=== PATIENT | male | born 1990 | race Caucasian/White ===

== ENCOUNTER 2017-04-02 07:44 | Emergency (ER) | payer MEDICAID | END 2017-04-02 08:17 | disposition home or self-care (01) | LOC: D.ER 07:44 | DX: K02.9 Dental caries, unspecified (principal); K08.89 Other specified disorders of teeth and supporting structures; F17.200 Nicotine dependence, unspecified, uncomplicated ==

== ENCOUNTER 2017-04-02 20:35 | Emergency (ER) | payer MEDICAID | END 2017-04-02 21:43 | disposition home or self-care (01) | LOC: D.ER 20:35 | DX: K08.89 Other specified disorders of teeth and supporting structures (principal) ==

== ENCOUNTER 2017-07-28 16:26 | Emergency (ER) | payer MEDICAID | END 2017-07-28 17:39 | disposition home or self-care (01) | LOC: D.ER 16:26 | DX: J02.9 Acute pharyngitis, unspecified (principal); J06.9 Acute upper respiratory infection, unspecified; F17.200 Nicotine dependence, unspecified, uncomplicated ==

== ENCOUNTER 2017-11-06 19:11 | Emergency (ER) | payer MEDICAID ==
[~2017-11-06] VITALS: Ht 177.8 cm; Wt 77.3 kg
[2017-11-06 19:37] VITALS: Ht 177.8 cm; Wt 77.3 kg
[2017-11-06] MEDS ORDERED: TORADOL10 MG PO (22:11)
[2017-11-06] MEDS ORDERED: KEFLEX500 MG PO (22:11)
[2017-11-06 22:42] VITALS: BP 147/87
== END 2017-11-06 22:42 | disposition home or self-care (01) ==
LOC: D.ER 19:11
DX: T63.461A Toxic effect of venom of wasps, accidental (unintentional), initial encounter (principal); Y92.89 Other specified places as the place of occurrence of the external cause; L08.9 Local infection of the skin and subcutaneous tissue, unspecified; F17.200 Nicotine dependence, unspecified, uncomplicated

== ENCOUNTER 2019-04-12 13:27 | Emergency (ER) | payer OTHER ==
[~2019-04-12] VITALS: Ht 177.8 cm; Wt 81.8 kg
[~2019-04-12 13:27] MED LIST: KEFLEX500 MG PO; TORADOL10 MG PO
[2019-04-12 13:37] VITALS: Ht 177.8 cm; Wt 81.8 kg
[2019-04-12 14:32] LABS: APPEARANCE CLEAR (CLEAR); COLOR YELLOW (YELLOW); SPECIFIC GRAVITY 1.025 (1.005-1.020)
[2019-04-12 14:33] LABS: BACTERIA FEW /hpf (NEGATIVE); BILIRUBIN NEGATIVE (NEGATIVE); EPITHELIAL CELLS 0-5 /hpf (0-5); GLUCOSE NEGATIVE (NEGATIVE); KETONE NEGATIVE (NEGATIVE); NITRITE NEGATIVE (NEGATIVE); PROTEIN 1+ mg/dL (NEGATIVE); RED CELLS - URINE 0-5 /hpf (0-5); UROBILINOGEN NORMAL (NORMAL); WHITE CELLS - URINE NSEEN /hpf (NEGATIVE)
[2019-04-12 15:09] LABS: BASOPHILS 0.6 % (0-2); EOSINOPHILS 1.8 % (0-7); HEMATOCRIT 44.5 % (42.0-54.0); HEMOGLOBIN 15.7 g/dL (13.5-17.5); IMMATURE GRANULOCYTES 0.3 % (0-5); LYMPHOCYTES 30.3 % (15-50); MCH 31.7 pg (26.0-34.0); MCHC 35.3 g/dL (31.0-37.0); MCV 89.7 fL (80.0-100.0); MEAN PLATELET VOLUME 10.4 fL (7.4-10.4); RBC 4.96 10x6/uL (4.20-6.10); RDW 13.7 % (11.5-14.5); WBC 7.7 10x3/uL (4.8-10.8)
[2019-04-12 15:15] LABS: PLATELET COUNT 306 10x3/uL (130-400)
[2019-04-12 15:31] LABS: CALC OSMOLALITY 278 mosm/kg (275-300); CARBON DIOXIDE 29.9 mmol/L (21.0-32.0); CHLORIDE - SERUM 104 mmol/L (98-107); CREATININE - SERUM 0.7 mg/dL (0.6-1.3); GLUCOSE 85 mg/dL (74-106); POTASSIUM - SERUM 5.2 mmol/L (3.5-5.1); SODIUM 140 mmol/L (136-145); UREA NITROGEN 14 mg/dL (7-18); eGFR NON AFRICAN AMERICAN > 90 mL/min (90-120)
[2019-04-12 15:38] LABS: ALKALINE PHOSPHATASE 110 U/L (46-116); ALT (SGPT) 82 U/L (10-68); BILIRUBIN - TOTAL 0.54 mg/dL (0.2-1.3); PROTEIN - SERUM 7.9 g/dL (6.4-8.2)
[2019-04-12] MEDS ORDERED: IBUPROFEN800 MG PO (15:39)
[2019-04-12] MEDS ORDERED: HYDROCODON-ACE1 EAC2 PO (15:39)
[2019-04-12 17:31] VITALS: BP 152/93
== END 2019-04-12 17:32 | disposition home or self-care (01) ==
LOC: D.ER 13:27
PROVIDERS: Emergency Medicine
DX: S32.009A Unspecified fracture of unspecified lumbar vertebra, initial encounter for closed fracture (principal); W13.2XXA Fall from, out of or through roof, initial encounter; Y93.9 Activity, unspecified; Y92.9 Unspecified place or not applicable; S16.1XXA Strain of muscle, fascia and tendon at neck level, initial encounter; R31.9 Hematuria, unspecified; K66.1 Hemoperitoneum; J45.909 Unspecified asthma, uncomplicated; Z72.0 Tobacco use

== ENCOUNTER 2019-04-23 20:41 | Emergency (ER) | payer OTHER ==
[~2019-04-23] VITALS: Ht 177.8 cm; Wt 77.3 kg
[~2019-04-23 20:41] MED LIST changes: +HYDROCODON-ACE1 EAC2 PO; +IBUPROFEN800 MG PO
[2019-04-23 20:50] VITALS: Ht 177.8 cm; Wt 77.3 kg
[2019-04-23] MEDS ORDERED: MUCINEX DM ER1 EAC1 PO (21:14)
[2019-04-23] MEDS ORDERED: MEDROL DOSE PACK4 MG PO (21:14)
[2019-04-23] MEDS ORDERED: VOLTAREN75 MG PO (21:14)
[2019-04-23] MEDS ORDERED: CYCLOBENZAPRINE10 MG PO (21:14)
[2019-04-23 22:44] VITALS: BP 133/76
== END 2019-04-23 22:23 | disposition home or self-care (01) ==
LOC: D.ER 20:41
DX: M54.5 Low back pain (principal); J40 Bronchitis, not specified as acute or chronic; J45.909 Unspecified asthma, uncomplicated; Z72.0 Tobacco use

== ENCOUNTER 2019-06-12 09:36 | Emergency (ER) | payer OTHER ==
[~2019-06-12] VITALS: Ht 177.8 cm; Wt 84.1 kg
[~2019-06-12 09:36] MED LIST changes: +CYCLOBENZAPRINE10 MG PO; +MEDROL DOSE PACK4 MG PO; +MUCINEX DM ER1 EAC1 PO; +VOLTAREN75 MG PO
[2019-06-12 09:53] VITALS: Ht 177.8 cm; Wt 84.1 kg
[2019-06-12] MEDS ORDERED: CYCLOBENZAPRINE10 MG PO (11:34)
[2019-06-12 11:42] VITALS: BP 156/99
== END 2019-06-12 11:49 | disposition home or self-care (01) ==
LOC: D.ER 09:36
DX: S01.81XA Laceration without foreign body of other part of head, initial encounter (principal); W11.XXXA Fall on and from ladder, initial encounter